=== PATIENT | male | born 1975 | race Caucasian/White ===

== ENCOUNTER 2019-01-31 17:15 | Emergency (ER) | payer SELFPAY ==
--- NOTE | 2019-01-31 17:39 | UC ---
Abdominal Pain Male HPI - HPI Summary HPI Summary: 43 yo male with gradual onset of bilat testicular pain x 2-3 days no dysuria no urethral D/C no f/c no n/v/d taking some sort of no FDA approved testosterone male enhancement pill that he started taking a few days prior to the onset of his symptoms some concern re STD - History of Current Complaint Stated Complaint: LOWER ABD PAIN Time Seen by Provider: 01/31/19 17:33 Hx Obtained From: Patient Timing: Constant Severity Initially: Mild Severity Currently: Severe Pain Intensity: 9 Pain Scale Used: 0-10 Numeric Location: Other - bilat testicles Radiates: Yes Radiates to: Inguinal Character: Aching Aggravating Factor(s): Movement Alleviating Factor(s): Rest Associated Signs And Symptoms: Negative: Diaphoresis, Fever, Cough, Chest Pain, Dizzy, Back Pain, Constipation, Blood in Stool, Urinary Symptoms, Decreased Appetite, Nausea, Vomiting, Diarrhea, Penile Discharge - Allergies/Home Medications Allergies/Adverse Reactions: Allergies Allergy/AdvReac Type Severity Reaction Status Date / Time cefaclor [From Ceclor] Allergy Unknown Rash Verified 01/31/19 17:27 erythromycin base Allergy Unknown Shortness Verified 01/31/19 17:27 of Breath Home Medications: Home Medications Acetaminophen TAB* [Tylenol TAB*] 650 mg PO Q4H PRN 01/31/19 [History Confirmed 01/31/19] [place]-3S/Dha/Epa/Fish Oil [Fish Oil 1,200 mg Softgel] 1 each PO DAILY 01/31/19 [ History Confirmed 01/31/19] Premigen- Male Inhansment 2 cap PO BID 01/31/19 [History] Testo Boost 1 cap PO BID 01/31/19 [History] PMH/Surg Hx/FS Hx/Imm Hx Previously Healthy: Yes - Surgical History Surgical History: None - Family History Known Family History: Positive: Hypertension Review of Systems All Other Systems Reviewed And Are Negative: Yes Constitutional: Positive: Negative Skin: Positive: Negative Eyes: Positive: Negative ENT: Positive: Negative Respiratory: Positive: Negative Cardiovascular: Positive: Negative Gastrointestinal: Positive: Negative Genitourinary: Positive: Other - bilat test. pain Motor: Positive: Negative Neurovascular: Positive: Negative Musculoskeletal: Positive: Negative Neurological: Positive: Negative Psychological: Positive: Negative Physical Exam Triage Information Reviewed: Yes Appearance: Well-Appearing, No Pain Distress, Well-Nourished Vital Signs Reviewed: Yes ENT: Positive: Hearing grossly normal. Negative: Nasal congestion, Nasal drainage, Trismus, Muffled voice, Hoarse voice Dental Exam: Normal Neck: Positive: Supple Respiratory: Positive: Chest non-tender, Lungs clear, Normal breath sounds Cardiovascular: Positive: RRR, No Murmur Abdomen Description: Positive: Nontender, No Organomegaly. Negative: CVA Tenderness (R), CVA Tenderness (L), Distended, Guarding, Hernia @, Peritoneal Signs, Pulsatile Mass, Splenomegaly Bowel Sounds: Positive: Present Male Genital Exam: Positive: No Hernia, Inguinal Tenderness - bilate, Testicular Tenderness (R), Testicular Tenderness (L), Other - normal orientation and lie of testicles/no masses noted Musculoskeletal: Positive: ROM Intact, No Edema Neurological: Positive: Alert Psychological Exam: Normal Abd Pain Male Course/Dx - Course Course Of Treatment: UA (-) - Differential Dx/Clinical Impression Provider Diagnosis: Acute epididymitis Discharge - Sign-Out/Discharge Documenting (check all that apply): Patient Departure All imaging exams completed and their final reports reviewed: No Studies - Discharge Plan Condition: Stable Disposition: HOME Prescriptions: DOXYcycline CAP(*) [DOXYcycline 100MG CAP(*)] 100 mg PO BID #14 cap Ibuprofen TAB* [Motrin TAB*] 600 mg PO QID PRN #40 tab PRN Reason: Pain Patient Education Materials: Epididymitis (ED) Referrals: SUDARSHAN Sheehan [Primary Care Provider] - 2 Days (if not better) Additional Instructions: TO ER FOR NEW OR WORSENING SYMPTOMS urine test pending - Billing Disposition and Condition Condition: STABLE Disposition: Home
[2019-01-31 17:40] VITALS: BP 141/98
[2019-02-02 10:55] LABS: Neisseria gonorrhoeae (GC) RNA Negative (Negative)
== END 2019-01-31 18:43 | disposition home or self-care (01) ==
LOC: UCCORT 17:15
DX: N45.1 Epididymitis (principal); Z88.1 Allergy status to other antibiotic agents
CPT/HCPCS: 81003; 87491; 87591; 99212; G0463

== ENCOUNTER 2019-09-05 07:08 | Emergency (ER) | payer BC ==
[2019-09-05 07:27] VITALS: BP 140/96
--- NOTE | 2019-09-05 07:55 | UC ---
Bite Injury/Animal HPI - HPI Summary HPI Summary: 43-year-old male comes in with a chief complaint of a tick bite. 2 days ago patient noticed tick in his upper chest. Used tweezers to get it out he is not sure if he got all of. Patient reports he's had Lyme disease a couple of years ago and was treated for that. Reports she's been having some body aches occasional neck pain and headache and Lyme disease type symptoms on and off for the last month worse in the last couple of weeks and he believes he may have Lyme disease again. He had some doxycycline at home and is taken 2 doses of that. No fevers measured. No neck pain at this time. No headache this time. Patient reports that yesterday he had bilateral flank pain and some lower abdominal pain that was mild and if his gotten better and he no longer has any flank pain or abdominal pain. No prior abdominal surgeries. - History of Current Complaint Chief Complaint: [place] Stated Complaint: TICK BITE,POSS LYMES DIS Time Seen by Provider: 09/05/19 07:38 Pain Intensity: 0 - Allergies/Home Medications Allergies/Adverse Reactions: Allergies Allergy/AdvReac Type Severity Reaction Status Date / Time cefaclor [From Ceclor] Allergy Unknown Rash Verified 09/05/19 07:28 erythromycin base Allergy Unknown Shortness Verified 09/05/19 07:28 of Breath PMH/Surg Hx/FS Hx/Imm Hx Previously Healthy: Yes - lyme - Surgical History Surgical History: None - Family History Known Family History: Positive: Hypertension - Social History Alcohol Use: Occasionally Alcohol Amount: 24 OZ OF BEER A DAY Substance Use Type: None Smoking Status (MU): Never Smoked Tobacco Household Exposure Type: Cigarettes Review of Systems All Other Systems Reviewed And Are Negative: Yes Constitutional: Positive: Other - see hpi Skin: Positive: Other - see hpi Eyes: Positive: Negative ENT: Positive: Negative Respiratory: Positive: Negative Cardiovascular: Positive: Negative Gastrointestinal: Positive: Abdominal Pain Motor: Positive: Negative Neurovascular: Positive: Negative Musculoskeletal: Positive: Arthralgia, Myalgia Neurological: Positive: Headache Psychological: Positive: Negative Is Patient Immunocompromised?: No Physical Exam Triage Information Reviewed: Yes Appearance: Well-Appearing, No Pain Distress, Well-Nourished Vital Signs: Initial Vital Signs Temp 98.7 F 09/05/19 07:19 Pulse 82 09/05/19 07:19 Resp 16 09/05/19 07:19 BP 140/96 09/05/19 07:19 Pulse Ox 97 09/05/19 07:19 Vital Signs Reviewed: Yes Eye Exam: Normal Eyes: Positive: Conjunctiva Clear ENT: Positive: Pharynx normal, TMs normal Neck: Positive: Supple Respiratory: Positive: Lungs clear, Normal breath sounds, No respiratory distress Cardiovascular: Positive: RRR Abdomen Description: Positive: Nontender, Soft. Negative: CVA Tenderness (R), CVA Tenderness (L) Musculoskeletal: Positive: Strength Intact, ROM Intact Neurological: Positive: Alert, Muscle Tone Normal Psychological: Positive: Age Appropriate Behavior Skin: Positive: Other - On the chest the patient is a 3 mm dark erythematous flat skin lesion I do not appreciate any foreign body. No bull's-eye rash. Bite Injury Course/Dx - Course Course Of Treatment: We will treat with doxycycline 100 mg by mouth twice a day for 14 days for the Lyme disease symptoms. Patient did complain of some intermittent flank pain and yesterday had some lower abdominal pain is also intermittent. He has no flank pain or abdominal pain today. Checking a CBC for signs of infection a CMP due to the flank pain and abdominal pain that occurred yesterday. Also checking a Lyme screen. Patient's falls primary care doctor get reevaluated sooner if worse. I also let him know that if he had more abdominal patient go to the emergency department. - Differential Dx/Diagnosis Provider Diagnosis: Tick bite of chest wall, Lower abdominal pain, Flank pain Discharge ED - Sign-Out/Discharge Documenting (check all that apply): Patient Departure All imaging exams completed and their final reports reviewed: No Studies - Discharge Plan Condition: Stable Disposition: HOME Prescriptions: DOXYcycline CAP(*) [DOXYcycline 100MG CAP(*)] 100 mg PO BID #28 cap Patient Education Materials: Tick Bite (ED), Acute Abdominal Pain (ED), Flank Pain (ED) Referrals: SUDARSHAN Sheehan [Primary Care Provider] - Additional Instructions: FOLLOW UP WITH YOUR DOCTOR. GO TO THE EMERGENCY DEPARTMENT IF NOT IMPROVING OR IF YOUR CONDITION WORSENS; PAIN, FEVER, YOU FEEL ILL OR ANY QUESTIONS OR CONCERNS. - Billing Disposition and Condition Condition: STABLE Disposition: Home
[2019-09-05 11:36] LABS: ABS Eosinophils 0.1 10^3/ul (0-0.6); ABS Lymphocytes 1.6 10^3/ul (1.0-4.8); ABS Monocytes 0.5 10^3/ul (0-0.8); ABS Neutrophils 2.6 10^3/ul (1.5-7.7); Eosinophil % 2.4 %; Hematocrit 46 % (42-52); Lymphocyte % 33.9 %; Mean Corpuscular HGB Conc 35 g/dL (31-36); Mean Corpuscular Hemoglobin 33 pg (27-31); Mean Corpuscular Volume 95 fL (80-94); Mean Platelet Volume 9.4 fL (7.4-10.4); Nucleated Red Blood Cells % 0.1; Platelet Count 224 10^3/uL (150-450); Red Blood Count 4.88 10^6 /uL (4.18-5.48); Red Cell Distribution Width 13 % (10-15); White Blood Count 4.9 10^3/uL (3.5-10.8)
[2019-09-05 11:45] LABS: Albumin 4.4 g/dL (3.2-5.2); Calcium 9.4 mg/dL (8.6-10.3); Potassium 4.3 mmol/L (3.5-5.0); Total Bilirubin 0.5 mg/dL (0.2-1.0)
[2019-09-05 11:51] LABS: Albumin/Globulin Ratio 1.8 (1-3); BUN/Creatinine Ratio 13.6 (8-20); EGFR African American 114.9 (>60); Globulin 2.5 g/dL (2-4); Total Protein 6.9 g/dL (6.4-8.9)
== END 2019-09-05 08:02 | disposition home or self-care (01) ==
LOC: UCCORT 07:08
DX: S20.369A Insect bite (nonvenomous) of unspecified front wall of thorax, initial encounter (principal); M25.50 Pain in unspecified joint; R51 Headache; R10.30 Lower abdominal pain, unspecified; Z88.1 Allergy status to other antibiotic agents; W57.XXXA Bitten or stung by nonvenomous insect and other nonvenomous arthropods, initial encounter; Y92.9 Unspecified place or not applicable
CPT/HCPCS: 36415; 80053; 85025; 86618; 99212; G0463